=== PATIENT | male | born 1960 | race Caucasian/White ===

== ENCOUNTER 2024-05-03 12:40 | Emergency (ER) | payer MEDICAID ==
[~2024-05-03] VITALS: Ht 162.6 cm; Wt 72.0 kg
[2024-05-03 12:49] VITALS: TEMP 98.2; O2SAT 100
[2024-05-03] MEDS ORDERED: NAPR-681 MT (13:48)
[2024-05-03 15:15] VITALS: BP 154/82; PULSE 67; RESP 16; O2SAT 99
[2024-05-03] MEDS: KETOROLAC 30MG/ML VIAL IM ONE (15:15)
== END 2024-05-03 15:18 | disposition home or self-care (01) ==
LOC: ER 12:54
DX: M54.50 Low back pain, unspecified (principal); E11.9 Type 2 diabetes mellitus without complications; I10 Essential (primary) hypertension
CPT/HCPCS: 99283; 96372; J1885